=== PATIENT | female | born 1950 | race Caucasian/White ===

== ENCOUNTER → 2016-09-20 | Outpatient (CLI) | payer BC, OTHER ==
[~2016-09-20] MED LIST: ACIDOPHILUS1 EAC4 PO; ALPRAZOLAM0.25 M2 PO; FLONASE16 G1 BOTH NARES; HYDROCODON-ACE1 EAC7 PO; HYZAAR 100-21 TABLET PO; KLOR-CON M2020 MEQ PO; LIPITOR20 MG PO; PRILOSEC20 MG PO; SYNTHROID50 MCG PO; TYLENOL EXTRA500 MG PO
== END | disposition home or self-care (01) ==
LOC: NUC 07:39
DX: E06.3 Autoimmune thyroiditis (principal); E66.9 Obesity, unspecified; E89.0 Postprocedural hypothyroidism; C73 Malignant neoplasm of thyroid gland; E11.65 Type 2 diabetes mellitus with hyperglycemia
CPT/HCPCS: 78018; 78999; A9528